=== PATIENT | female | born 1950 | race Caucasian/White ===

== ENCOUNTER 2017-03-26 09:45 | Outpatient (CLI) | payer MEDICARE, OTHER | END 2017-03-26 09:46 | disposition home or self-care (01) | LOC: BICMAMMO 09:45 | PROVIDERS: ATTEND Obstetrics & Gynecology | DX: Z12.31 Encounter for screening mammogram for malignant neoplasm of breast (principal); Z80.3 Family history of malignant neoplasm of breast | CPT/HCPCS: 77063; 77067 ==

== ENCOUNTER 2017-12-28 13:13 | Outpatient (CLI) | payer MEDICARE ==
--- NOTE | 2017-12-28 16:59 | ULT ---
BILATERAL BREAST ULTRASOUND: Date: 12/28/17 HISTORY: Bilateral breast pain. COMPARISON: None. TECHNIQUE: Targeted sonographic imaging of the right and left breast are performed in the region of concern. Sta tic images were reviewed. After reviewing static images, breast imaging performed in the presence of a radiologist. FINDINGS: Static and real-time images demonstrate normal fibroglandular tissue in the right breast. In the left breast, 11 o'clock position, there is a well circumscribed, echogenic focus, measuring 0.3 cm, which may represent a small lymph node versus a focal area of fat. No evidence of architectural distortion or shadowing. IMPRESSION: BIRADS 2: Benign Finding(s) RECOMMENDATION: Annual mammogram. POS: [facility]ONNY
== END 2017-12-28 13:14 | disposition home or self-care (01) ==
LOC: BICMAMMO 13:13
PROVIDERS: ATTEND Obstetrics & Gynecology
DX: N63.20 Unspecified lump in the left breast, unspecified quadrant (principal); N63.10 Unspecified lump in the right breast, unspecified quadrant; Z80.3 Family history of malignant neoplasm of breast
CPT/HCPCS: 76642 ×2; 77066; G0279

== ENCOUNTER 2019-07-14 07:43 | Outpatient (CLI) | payer MEDICARE ==
--- NOTE | 2019-07-14 09:13 | MMO ---
Bilateral MAMMO Bilat Screen [facility]. CLINICAL HISTORY: Patient is 69 years old and is seen for screening. The patient has the following family history of breast cancer: sister, malignant (generic). The patient has no personal history of cancer. VIEWS: The views performed were: bilateral craniocaudal with tomosynthesis and bilateral mediolateral oblique with tomosynthesis. FILMS COMPARED: The present examination has been compared to prior imaging studies performed at [facility] on 03/05/2015, 03/24/2016, 03/26/2017 and 12/28/2017. This study has been interpreted with the assistance of computer-aided detection. MAMMOGRAM FINDINGS: The breasts are almost entirely fat. There are no suspicious masses, suspicious calcifications, or new areas of architectural distortion. IMPRESSION: THERE IS NO MAMMOGRAPHIC EVIDENCE OF MALIGNANCY. A ROUTINE FOLLOW-UP MAMMOGRAM IN 1 YEAR IS RECOMMENDED. THE RESULTS OF THIS EXAM WERE SENT TO THE PATIENT. ACR BI-RADS Category 1 - Negative MAMMOGRAPHY NOTE: 1. A negative mammogram report should not delay a biopsy if a dominant of clinically suspicious mass is present. 2. Approximately 10% to 15% of breast cancers are not detected by mammography. 3. Adenosis and dense breasts may obscure an underlying neoplasm. Reported by: CAITLYN GIBBS MD Electonically Signed: [id number]
== END 2019-07-14 07:44 | disposition home or self-care (01) ==
LOC: BICMAMMO 07:43
PROVIDERS: ATTEND Obstetrics & Gynecology
DX: Z12.31 Encounter for screening mammogram for malignant neoplasm of breast (principal); Z80.3 Family history of malignant neoplasm of breast
CPT/HCPCS: 77063; 77067

== ENCOUNTER 2020-07-18 08:33 | Outpatient (CLI) | payer MEDICARE | END 2020-07-18 08:34 | disposition home or self-care (01) | LOC: BICMAMMO 08:33 | PROVIDERS: ATTEND Obstetrics & Gynecology | DX: Z12.31 Encounter for screening mammogram for malignant neoplasm of breast (principal); Z80.3 Family history of malignant neoplasm of breast | CPT/HCPCS: 77063; 77067 ==

== ENCOUNTER 2022-09-30 10:36 | Outpatient (CLI) | payer MEDICARE | END 2022-09-30 10:37 | disposition home or self-care (01) | LOC: SCSRAD 10:36 | PROVIDERS: ATTEND Nurse Practitioner Family | DX: R05.1 Acute cough (principal) | CPT/HCPCS: 71046 ==

== ENCOUNTER 2024-01-18 09:35 | Outpatient (CLI) | payer MEDICARE | END 2024-01-18 09:36 | disposition home or self-care (01) | LOC: BICRAD 09:35 | PROVIDERS: ATTEND Specialist | DX: R07.82 Intercostal pain (principal); M95.4 Acquired deformity of chest and rib ==